=== PATIENT | female | born 1990 | race Caucasian/White ===

== ENCOUNTER 2019-07-27 06:11 | Emergency (ER) | payer MEDICARE ==
[~2019-07-27] VITALS: Ht 167.6 cm; Wt 97.5 kg
[2019-07-27 07:51] LABS: BASOPHILS # (AUTO) 0.1 (0.0-0.1); BASOPHILS % 0.9 % (0.0-1.0); EOSINOPHILS # (AUTO) 0.1 (0.0-0.4); EOSINOPHILS % 0.9 % (0.0-6.0); HEMATOCRIT 45.8 % (34.2-44.1); HEMOGLOBIN 16.2 g/dL (12.0-16.0); LYMPHOCYTES # (AUTO) 4.2 (1.0-3.2); LYMPHOCYTES % 32.9 % (18.0-39.1); MEAN CORPUSCULAR HEMOGLOBIN 32.1 pg (28-32); MEAN CORPUSCULAR HGB CONC 35.4 g/dL (31-35); MEAN CORPUSCULAR VOLUME 90.7 fL (81-99); MONOCYTES # (AUTO) 0.6 (0.2-0.8); NEUTROPHILS # (AUTO) 7.7 (2.1-6.9); NEUTROPHILS % 59.7 % (38.7-80.0); PLATELET COUNT 273 x10e3/uL (140-360); RED BLOOD COUNT 5.05 x10e6/uL (3.6-5.1); RED CELL DISTRIBUTION WIDTH 11.8 % (11.7-14.4)
[2019-07-27 08:06] LABS: ANION GAP 17.7 mmol/L (8-16); BLOOD UREA NITROGEN 8 mg/dL (7-26); BUN/CREATININE RATIO 11 (6-25); CALCIUM 9.5 mg/dL (8.4-10.2); CARBON DIOXIDE 18 mmol/L (22-29); CHLORIDE 102 mmol/L (98-107); CREATININE, SERUM 0.75 mg/dL (0.57-1.11); EST GLOMERULAR FILTRATION RATE > 60 ML/MIN (60-); GLUCOSE 79 mg/dL (74-118); POTASSIUM 3.7 mmol/L (3.5-5.1); SODIUM 134 mmol/L (136-145)
[2019-07-27 08:10] LABS: COLOR,URINE YELLOW (YELLOW)
[2019-07-27 08:11] LABS: CLARITY,URINE SL CLOUDY (CLEAR); KETONES,URINE 3+ (NEGATIVE); LEUKOCYTE ESTERASE ,URINE NEGATIVE (NEGATIVE); NITRITE,URINE NEGATIVE (NEGATIVE); PROTEIN,URINE DIPSTICK NEGATIVE (NEGATIVE)
[2019-07-27 08:12] LABS: BILIRUBIN,URINE SMALL (NEGATIVE); URINE UROBILINOGEN 0.2 mg/dL (0.2 - 1)
[2019-07-27 08:16] LABS: PREGNANCY TEST, URINE POSITIVE (NEGATIVE)
[2019-07-27 08:40] LABS: RBC,URINE 0-5 /HPF (0-5)
[2019-07-27 08:44] LABS: BACTERIA,URINE MANY /HPF
[2019-07-27 08:45] LABS: EPITHELIAL CELLS,URINE MANY /LPF
[2019-07-27 08:46] LABS: AMORPHOUS SEDIMENT,URINE MODERATE (FEW); MUCUS,URINE FEW (RARE)
--- NOTE | 2019-07-27 08:53 | NUR ---
NOTIFIED PT OF POSITIVE PREG TEST. PT WAS NOT HAPPY. HAS ONE CHILD CURRENTLY.
--- OUTSIDE RECORDS SUMMARY | 2019-07-29 13:50 | XMS REPORT ---
Author Author [facility] Address Unknown Phone Unavailable Care Team Providers Care Customer Service Professional Name Role Phone Unavailable Unavailable Payers Payer Name Policy Type Policy Number Effective Date Expiration Date Problems This patient has no known problems. Allergies, Adverse Reactions, Alerts Allergy Name Allergy Type Status Severity Reaction(s) Onset Date Inactive Date Treating Clinician Comments No Known Allergies DA Active U 2018-09-18 00:00:00 No Known Allergies DA Active U 2018-05-18 00:00:00 JALAYOSEF DA Active [place] 2017-03-22 00:00:00 Medications This patient has no known medications.
== END 2019-07-27 13:42 | disposition home or self-care (01) ==
LOC: ER 06:11
DX: R50.9 Fever, unspecified (principal); R11.0 Nausea; R82.71 Bacteriuria; E86.0 Dehydration; Z33.1 Pregnant state, incidental
CPT/HCPCS: 36415; 80048; 81001; 81025; 85025; 87086; 87400; 99283